=== PATIENT | male | born 1955 | race Caucasian/White ===

== ENCOUNTER 2017-10-05 10:52 | Day surgery (SDC) | payer MEDICARE ==
[~2017-10-05 10:52] MED LIST: EPHEDrine SULFATE 50 MG/5 ML SYG; ROCURONIUM 50 MG INJ
[2017-10-05 11:37] LABS: ADD MAN DIFF? NO
[2017-10-05] MEDS ORDERED: BUPIVACAINE 0.25% (MPF) 30 ML INJ (11:37)
[2017-10-05] MEDS ORDERED: LIDOCAINE 1%/EPI 30 ML INJ (11:37)
[2017-10-05 11:41] LABS: WHITE BLOOD COUNT 12.7 10^3/ul (4.8-10.8)
[2017-10-05 11:41] LABS: BASOPHIL # 0.1 10^3/ul (0.0-0.1); BASOPHILS % 0.6 % (0.0-2.0); EOSINOPHILS # 0.2 10^3/ul (0.0-0.5); EOSINOPHILS % 1.6 % (0.0-7.0); HEMATOCRIT 40.8 % (42.0-52.0); HEMOGLOBIN 13.6 g/dl (14.0-18.0); LYMPHOCYTES # 1.3 10^3/ul (0.8-2.9); LYMPHOCYTES % 10.1 % (15.0-51.0); MEAN CORPUSCULAR HEMOGLOBIN 31.5 pg (29.0-33.0); MEAN CORPUSCULAR HGB CONC 33.3 g/dl (32.0-37.0); MEAN CORPUSCULAR VOLUME 94.4 fl (82.0-101.0); MEAN PLATELET VOLUME 9.5 fl (7.4-10.4); MONOCYTE # 0.9 10^3/ul (0.3-0.9); MONOCYTES % 6.7 % (0.0-11.0); NEUTROPHIL # 10.2 10^3/ul (1.6-7.5); NEUTROPHILS % 80.2 % (39.0-77.0); PLATELET COUNT 285 10^3/UL (140-415); RED BLOOD COUNT 4.32 10^6/ul (4.70-6.10); RED CELL DISTRIBUTION WIDTH 13.3 % (11.5-14.5)
[2017-10-05 11:42] LABS: HOLD TRANSMISSIONS 1
[2017-10-05] MEDS ORDERED: DEXAMETHASONE 4 MG/ML 1 ML INJ (11:43)
[2017-10-05] MEDS ORDERED: GLYCOPYRROLATE 0.4 MG INJ (11:43)
[2017-10-05] MEDS ORDERED: ROCURONIUM 50 MG INJ (11:43)
[2017-10-05] MEDS ORDERED: PROPOFOL 20 ML (11:43)
[2017-10-05] MEDS ORDERED: FENTAnyl 50 MCG/ML VIAL (11:43)
[2017-10-05] MEDS ORDERED: NEOSTIGMINE 3 MG/3 ML SYRINGE (11:43)
[2017-10-05] MEDS ORDERED: CEFAZOLIN 1 GM INJ (11:43)
[2017-10-05] MEDS ORDERED: ONDANSETRON 4 MG INJ ×2 (11:43→13:59)
[2017-10-05] MEDS ORDERED: MIDAZOLAM 1 MG/ML 2 ML INJ (11:43)
[2017-10-05 11:58] LABS: ALANINE AMINOTRANSFERASE 22 IU/L (13-69); ALBUMIN/GLOBULIN RATIO 1.17; ALKALINE PHOSPHATASE 105 IU/L (42-121); ANION GAP 16 (8-16); ASPARTATE AMINO TRANSFERASE 15 IU/L (15-46); BILIRUBIN,INDIRECT 0.8 mg/dl (0-1.1); BILIRUBIN,TOTAL 0.8 mg/dl (0.2-1.3); CARBON DIOXIDE 31 mmol/L (21-31); CHLORIDE 102 mmol/L (97-110); GLUCOSE 104 mg/dl (70-220); INR 0.93; PROTIME 12.5 Sec (11.9-14.9); TOTAL PROTEIN 7.4 g/dl (6.1-8.1)
[2017-10-05 12:07] LABS: BLOOD UREA NITROGEN 22 mg/dl (7-20); CALCIUM 9.2 mg/dl (8.4-10.2); CREATININE 0.75 mg/dl (0.61-1.24); PARTIAL THROMBOPLASTIN TIME 35.6 Sec (25.0-35.0); POTASSIUM 4.2 mmol/L (3.5-5.1); SODIUM 145 mmol/L (135-144)
[2017-10-05] MEDS ORDERED: SUGAMMADEX SODIUM 200 MG/2 ML VIAL IV (13:59)
[2017-10-05] MEDS ORDERED: HYDROmorphONE 2 MG/ML SYG (14:20)
[2017-10-05] MEDS: LIDOCAINE 1%/EPI 30 ML INJ INJ (14:53)
[2017-10-05] MEDS: BUPIVACAINE 0.25% (STERILE-PAK) 30 ML INJ INJ (14:53)
[2017-10-05] MEDS ORDERED: ONDANSETRON 4 MG INJ IV ×2 (15:30)
[2017-10-05] MEDS ORDERED: morphine 10 MG INJ IM (15:30)
[2017-10-05] MEDS ORDERED: OXYCODONE/ACETAMINOPHEN (5/325) TAB PO (15:30)
[2017-10-05] MEDS: FENTAnyl 50 MCG/ML VIAL IV (15:41)
[2017-10-05] MEDS: OXYCODONE/ACETAMINOPHEN (5/325) TAB PO (16:22)
[2017-10-05] MEDS: HYDROmorphONE (0.2 MG/ML) 10ML SYG IV (17:27)
== END 2017-10-05 19:59 | disposition other institution (70) ==
LOC: SDS 10:52
DX: K40.00 Bilateral inguinal hernia, with obstruction, without gangrene, not specified as recurrent (principal); N43.3 Hydrocele, unspecified; K43.9 Ventral hernia without obstruction or gangrene; I10 Essential (primary) hypertension; F20.9 Schizophrenia, unspecified
CPT/HCPCS: 49650; 80053; 85025; 85610; 85730; 88302; 93005